=== PATIENT | female | born 1995 | race Two or more races ===

== ENCOUNTER 2024-03-12 12:22 | Emergency (ER) | payer MEDICAID ==
[~2024-03-12] VITALS: Ht 167.6 cm; Wt 163.5 kg
[2024-03-12 12:22] VITALS: BP 143/63; RESP 20; O2SAT 98
--- NOTE | 2024-03-12 12:42 | ECG ---
[facility] Test Date: 2024-03-12 Test Time: 12:39:16 Pat Name: JACOBO GUERRERO Department: ER Room: Gender: F [employer]ator: FARA : 1995 Requested By: LEONARD MOORE Order Number: [id number] Reading MD: Rogelio Ozuna Measurements Intervals [place] Rate: 100 P: 41 [place]: 127 QRS: -4 QRSD: 99 T: 14 QT: 366 QTc: 473 Interpretive Statements Sinus tachycardia Electronically Signed On 03-12-2024 12:54:41 PST by Rogelio Ozuna Please click the below link to view image of tracing.
[2024-03-12 13:31] LABS: Eosinophils # (auto) 0.3 10 ^3/uL (0-0.8); Eosinophils % (auto) 2.2 % (0.0-7.0); Hemoglobin 11.9 g/dL (12.2-16.2); Lymphocytes # (auto) 4.4 10 ^3/uL (0.4-5.4)
[2024-03-12 13:33] LABS: Basophils # (auto) 0.1 10 ^3/uL (0-0.2); Basophils % (auto) 0.8 % (0.0-2.0); Hematocrit 37.6 % (36.0-46.0); Mean Corpuscular Hemoglobin 23.4 pg (28.0-32.0); Mean Corpuscular Hgb Conc. 31.5 g/dL (32.0-36.0); Mean Corpuscular Volume 74.3 fL (80.0-100.0); Monocytes # (auto) 0.6 10 ^3/uL (0-1.3); Monocytes % (auto) 5.5 % (0.0-12.0); Neutrophils # (auto) 6.2 10 ^3/uL (1.6-8.6); Neutrophils % (auto) 53.5 % (37.0-80.0); Platelet Count (auto) 461 10^3/uL (140-450); Red Blood Cells 5.07 10^6/uL (4.0-5.20); Red Cell Distribution Width 16.6 % (11.8-14.3); White Blood Cell 11.7 10^3/uL (4.4-10.8)
--- NOTE | 2024-03-12 13:33 | ED.PDOC ---
Psychiatric HPI Comments HPI: 29y F who presents to the ED for chief complaint of anxiety. Pt presents to the ED with the following: - pt states she has been having an anxiety attack that started 1 hours prior while at work and states she started to have chest heaviness and bilateral upper extremity tingling and came to the ED for evaluation. Patient states she had these symptoms in the past. - pt states she is in BuSpar but states due to recent cold and being on ant ibiotics, she has not taken her BUSPAR for the past 2 days - pt states her stressors are family being at home and "alot is going on at home" that causes her panic attack symptoms. -pt has history of panic attacks - pt currently on her menstrual cycle. VITALS: Temp: 99.2 F RR: 20 02 sat : 98% on room air HR: 87 BP: 143/63 PMH: DM, anxiety, HTN, panic attacks PSH: , gallbladder Social history: denies tobacco use, denies ETOH use, denies drug use Medications: buspar Allergies: denies HPI: Poor Historian. Past Medcial History: Past Surgical History: REVIEW OF SYSTEMS: All symptoms have resolved prior to my evaluation CONSTITUTIONAL: Denies acute: fever, diaphoresis, chills, generalized weakness. HEAD: Denies acute: headache, photophobia Eyes: Denies acute: Double vision, vision loss, eye pain, eye discharge. EARS: Denies acute: tinnitus, hearing loss, ear discharge, ear pain, THROAT: Denies acute: sore throat, swelling, difficulty swallowing , pain with swallowing, change in voice. NECK: Denies acute: neck pain, neck swelling, stiff neck. HEART: Denies acute : chest pain, palpitations, LUNGS: Denies acute: SOB, wheezing, cough, hemoptysis ABDOMEN: Denies acute: abdominal pain, Nausea, Vomiting, diarrhea, melena , hematemesis, hematochezia SKIN: Denies acute: rash, redness, lesions, itchiness. EXTREMITIES: Denies acute: calf pain, numbness, tingling, weakness, denies pain in extremity. Denies acute: Low back pain. Neuro: Denies acute: focal neurological deficit, motor or sensory focal neurological deficit, tremors, seizure like activity, confusion, dizziness, change in mental status, loss of bowel or bladder function, cauda equina like symptoms. : Denies acute: dysuria, hematuria, flank pain, increase in urinary frequency. PSYCH: Denies acute: hallucination, suicidal ideation, homicidal ideation. FEMALE: Denies acute: abnormal vaginal bleeding, foul odor, unusual discharge. PHYSICAL EXAM: General: no acute distress, awake and alert. Head: normocephalic, atraumatic. Neck: supple, trachea is midline, no swelling. Throat: Normal phonation. Eyes:, no erythema, no purulent discharge, no proptosis, no icterus. Heart: regular rate, regular rhythm, no significant murmur appreciated. Lungs: no apparent respiratory distress, Able to speak in full sentences. No wheezing, no rhonchi, no crackles. No stridors Clear to auscultation bilaterally. Abdomen: non tender to palpation, non distended, soft, no guarding, no rebound, + bowel sounds. Morbidly obese Neuro: Awake, Alert, oriented to name, self, situation, follows commands GCS=15. Speech is normal. Skin: no petechia, no purpura, no cyanosis, non-pale, not jaundice. Lower extremities: --no - Pitting edema no deformity, no focal swelling, no calf TTP. Makes eye contact. moves all four extremities. Face: no apparent facial droop. Ambulating in the ED independently. Chief Complaint: Anxiety Time Seen by MD: 13:33 Primary Care Provider: JINA BARRAZA Reviewed Notes: Nurses Notes, Medications, Allergies Information Source: Patient Mode of Arrival: Ambulatory Past Medical History PAST MEDICAL HISTORY: Anxiety Was a procedure done? Was a procedure done?: No X-Ray, Labs, Meds, VS Vital Signs Date Time Temp Pulse Resp B/P (MAP) Pulse Ox O2 Delivery O2 Flow Rate FiO2 03/12/24 14:32 100 03/12/24 12:22 99.2 87 20 143/63 (89) 98 Lab Test 03/12/24 13:57 03/12/24 13:41 03/12/24 12:56 Range/Units Magnesium Level 2.0 1.6-2.6 mg/dL Troponin I High Sensitivity < 3 L < 3 L </=34 ng/L Thyroid Stimulating Hormone (TSH) 1.92 0.55-4.78 uIU/mL Beta HCG, Quantitative < 0.0 L 1.5-4.2 mIU/mL Urine Color Colorless Yellow Urine Clarity Clear Clear Urine pH 5.5 5.0-9.0 Urine Specific [place] 1.007 1.001-1.035 Urine Protein Negative Negative Urine Ketones Negative Negative Urine Blood Negative Negative /uL Urine Nitrite Negative Negative Urine Bilirubin Negative Negative Urine Urobilinogen Normal Negative mg/dL Urine Leukocyte Esterase Negative Negative /uL Urine RBC <1 0 - 4 /hpf Urine WBC <1 0 - 5 /hpf Urine Squamous Epithelial Cells Few <5 /hpf Urine Bacteria None seen None Seen /hpf Urine Glucose Normal Normal mg/dL Urine Opiates Screen Neg NEGATIVE Urine Fentanyl Screen Neg NEGATIVE Urine Barbiturates Screen Neg NEGATIVE Urine Phencyclidine Screen Neg NEGATIVE Urine Amphetamines Screen Neg NEGATIVE Urine Benzodiazepines Screen Neg NEGATIVE Urine Cocaine Screen Neg NEGATIVE Urine Cannabinoids Screen Neg NEGATIVE White Blood Count 11.7 H 4.4-10.8 10^3/uL Red Blood Count 5.07 4.0-5.20 10^6/uL Hemoglobin 11.9 L 12.2-16.2 g/dL Hematocrit 37.6 36.0-46.0 % Mean Corpuscular Volume 74.3 L 80.0-100.0 fL Mean Corpuscular Hemoglobin 23.4 L 28.0-32.0 pg Mean Corpuscular Hemoglobin Concent 31.5 L 32.0-36.0 g/dL Red Cell Distribution Width 16.6 H 11.8-14.3 % Platelet Count 461 H 140-450 10^3/uL Mean Platelet Volume 7.6 6.9-10.8 fL Neutrophils (%) (Auto) 53.5 37.0-80.0 % Lymphocytes (%) (Auto) 38.0 10.0-50.0 % Monocytes (%) (Auto) 5.5 0.0-12.0 % Eosinophils (%) (Auto) 2.2 0.0-7.0 % Basophils (%) (Auto) 0.8 0.0-2.0 % Neutrophils # (Auto) 6.2 1.6-8.6 10 ^3/uL Lymphocytes # (Auto) 4.4 0.4-5.4 10 ^3/uL Monocytes # (Auto) 0.6 0-1.3 10 ^3/uL Eosinophils # (Auto) 0.3 0-0.8 10 ^3/uL Basophils # (Auto) 0.1 0-0.2 10 ^3/uL Nucleated Red Blood Cells 0.0 % Sodium Level 137 136-145 mmol/L Potassium Level 4.3 3.5-5.1 mmol/L Chloride Level 104 98-107 mmol/L Carbon Dioxide Level 25 20-31 mmol/L Anion Gap 8 5-15 Blood Urea Nitrogen 12 9-23 mg/dL Creatinine 0.66 0.550-1.02 mg/dL Glomerular Filtration Rate Calc 121 >90 mL/min BUN/Creatinine Ratio 18.2 10.0-20.0 Serum Glucose 94 74-106 mg/dL Calcium Level 10.0 8.7-10.4 mg/dL Total Bilirubin 0.3 0.2-1.0 mg/dL Aspartate Amino Transferase (AST) 139 H 13-40 U/L Alanine Aminotransferase (ALT) 157 H 7-40 U/L Alkaline Phosphatase 126 H 46-116 U/L Total Protein 7.3 5.7-8.2 g/dL Albumin 4.2 3.2-4.8 g/dL Patient Education/Counseling: Diagnosis, Treatment Family Education/Counseling: No Family Present Additional Information Patient presented with the above HPI.---anxiety---workup was initiated. patient was found with the above mentioned diagnosis. the following medications were ordered: metoprolol, IV fluids the following tests were ordered: EKG x 3, troponin x3, CBC, CMP Patient ED course and VS have been stabilized. Patient has been reassessed in the ED and remained in a stable condition. Patient has been observed in the ED adequate length of time to insure improvement/stability. Escalation of care considered: Consideration of escalation to observation or admission. Patient was discharged home in a stable condition. All the reports of any imaging studies that were ordered by myself were reviewed by myself. Departure 1 Departure Time of Disposition: 15:42 Impression: Primary Impression: Episode of anxiety Additional Impressions: Panic attack as reaction to stress Elevated LFTs Disposition: HOME / SELF CARE / HOMELESS Condition: Stable Additional Instructions: Additional discharge instructions: You MUST follow-up with your primary care/family doctor in 1 to 2 days. If you are unable to see your primary care/family doctor, please return to our emergency room for re-assessment and re-evaluation in 1 to 2 days. Return to the emergency room here in our facility or to the nearest ER [facility] if your symptoms change or worsen. CONSULTATIONS: you MUST Follow-up for consultation as soon as possible with: Dr. galan/psychiatry in 1-2 days. You MUST call the consultants office yourself to make an appointment. You may need to arrange that through your insurance and/or your primary/family doctor. If you are unable to see the color consultant in 1 to 2 days, you must return to our emergency room (or any other ER of your choice) for re-assessment and re- evaluation. Adequate fluid hydration. Your liver enzymes are elevated. Please follow up with Gastroenterology. Discharged With: Self Critical Care Note Critical Care Time?: No I personally scribed for LEONARD MOORE DO ([email or web address]) on 03/12/24 at 13:33. Electronically submitted by Katherine Lowe ([email or web address]). I personally scribed for LEONARD MOORE DO ([email or web address]) on 03/12/24 at 13:35. Electronically submitted by Katherine Lowe ([email or web address]). I personally scribed for LEONARD MOORE DO ([email or web address]) on 03/12/24 at 13:41. Electronically submitted by Katherine Lowe ([email or web address]). I personally scribed for LEONARD MOORE DO ([email or web address]) on 03/12/24 at 22:13. Electronically submitted by Katherine Lowe ([email or web address]). LEONARD MOORE DO Mar 12, 2024 13:33
[2024-03-12 13:38] LABS: Albumin 4.2 g/dL (3.2-4.8); Anion Gap 8 (5-15); BUN/Creatinine Ratio 18.2 (10.0-20.0); Blood Urea Nitrogen 12 mg/dL (9-23); Carbon Dioxide 25 mmol/L (20-31); Chloride 104 mmol/L (98-107); Glucose 94 mg/dL (74-106); Potassium 4.3 mmol/L (3.5-5.1); Sodium 137 mmol/L (136-145)
[2024-03-12 13:39] LABS: Total Protein 7.3 g/dL (5.7-8.2)
[2024-03-12 14:07] LABS: Alanine Aminotransferase 157 U/L (7-40); Alkaline Phosphatase 126 U/L (46-116); Aspartate Aminotransferase 139 U/L (13-40)
[2024-03-12 14:30] LABS: Bilirubin, Total 0.3 mg/dL (0.2-1.0)
[2024-03-12 14:32] VITALS: PULSE 100
[2024-03-12 14:41] LABS: Urine Bacteria None Seen /hpf (None Seen)
[2024-03-12 15:08] LABS: Amphetamine Screen, Urine Neg (NEGATIVE); Barbiturate Scree,Urine Neg (NEGATIVE); Benzodiazephine Screen, Urine Neg (NEGATIVE); Cannabinoid Screen, Urine Neg (NEGATIVE); Cocaine Screen, Urine Neg (NEGATIVE); Opiate Scree,Urine Neg (NEGATIVE); Phencyclidine Screen, Urine Neg (NEGATIVE)
[2024-03-12 15:11] LABS: Thyroid Stimulating Hormone 1.92 uIU/mL (0.55-4.78)
[2024-03-12 15:20] LABS: Beta HCG, Quantitative < 0.0 mIU/mL (1.5-4.2)
[2024-03-12 15:46] LABS: Urine Blood Negative /uL (Negative); Urine Clarity Clear (Clear); Urine Color Colorless (Yellow); Urine Protein, UAD Negative (Negative); Urine Specific Gravity 1.007 (1.001-1.035); Urine Squamous Epithelial Cell FEW /hpf (<5); Urine Urobilinogen Normal (Negative); Urine WBC <1 /hpf (0 - 5); Urine pH 5.5 (5.0-9.0)
== END 2024-03-12 17:07 | disposition home or self-care (01) ==
LOC: ER 12:22
DX: F43.0 Acute stress reaction (principal); R79.89 Other specified abnormal findings of blood chemistry; F41.9 Anxiety disorder, unspecified; I10 Essential (primary) hypertension; E11.9 Type 2 diabetes mellitus without complications; Z98.890 Other specified postprocedural states; Z79.899 Other long term (current) drug therapy
CPT/HCPCS: 36415; 80053; 80307; 81001; 83735; 84443; 84484; 84702; 85025; 93005